=== PATIENT | female | born 1995 | race African-American/Black ===

== ENCOUNTER 2024-09-05 05:21 | Emergency (ER) | payer MEDICAID ==
[~2024-09-05] VITALS: Ht 175.3 cm; Wt 111.1 kg
[2024-09-05 05:35] VITALS: BP 132/80; PULSE 70; RESP 17; TEMP 98.6; O2SAT 99
[2024-09-05 05:40] VITALS: O2SAT 99
[2024-09-05] MEDS ORDERED: NAPR-681 PO (19:42)
== END 2024-09-05 09:52 | disposition left against medical advice (07) ==
LOC: ER 05:21
DX: R68.84 Jaw pain (principal); Z53.21 Procedure and treatment not carried out due to patient leaving prior to being seen by health care provider

== ENCOUNTER 2024-09-05 16:28 | Emergency (ER) | payer MEDICAID ==
[~2024-09-05] VITALS: Ht 175.3 cm; Wt 111.0 kg
[2024-09-05 16:37] VITALS: TEMP 98.7; O2SAT 98
[2024-09-05 17:22] VITALS: O2SAT 100
[2024-09-05 18:05] VITALS: BP 143/78; PULSE 90; RESP 18
[2024-09-05] MEDS: HYDROCODONE/ACETAMINOPHEN 5/325MG TABLET PO STA (18:05)
[2024-09-05] MEDS ORDERED: NAPR-681 PO (19:42)
== END 2024-09-05 20:02 | disposition home or self-care (01) ==
LOC: ER 16:28
DX: S00.83XA Contusion of other part of head, initial encounter (principal); G44.309 Post-traumatic headache, unspecified, not intractable; Y08.89XA Assault by other specified means, initial encounter; Y93.89 Activity, other specified; Y92.89 Other specified places as the place of occurrence of the external cause; Y99.8 Other external cause status
CPT/HCPCS: 70486; 81025; 99284

== ENCOUNTER 2024-11-14 10:47 | Emergency (ER) | payer MEDICAID ==
[~2024-11-14] VITALS: Ht 167.6 cm; Wt 113.3 kg
[~2024-11-14 10:47] MED LIST: NAPR-681 PO
[2024-11-14 11:00] VITALS: BP 118/85; RESP 16; TEMP 36.6; O2SAT 96
[2024-11-14 11:03] VITALS: PULSE 78; O2SAT 98
[2024-11-14 11:43] LABS: CLARITY URINE CLOUDY (CLEAR); COLOR URINE YELLOW (YELLOW); GLUCOSE URINE NEGATIVE (NEGATIVE); KETONES URINE NEGATIVE (NEGATIVE); LEUKOCYTE ESTERASE URINE 1+ (NEGATIVE); NITRITE URINE POSITIVE (NEGATIVE); OCCULT BLOOD URINE TRACE (NEGATIVE); PROTEIN URINE NEGATIVE (NEGATIVE); SPECIFIC GRAVITY URINE 1.021 (1.005-1.030)
[2024-11-14 12:06] LABS: BACTERIA URINE 4+; SQUAMOUS EPITHELIAL CELL URINE 3+ /lpf (RARE/1+); YEAST URINE NONE SEEN
[2024-11-14] MEDS: CEFTRIAXONE SODIUM 1G VIAL IM ONE (12:07)
[2024-11-14] MEDS: LIDOCAINE HCL 1% 20ML VIAL INFIL ONE (12:07)
[2024-11-14] MEDS ORDERED: METR-167 MT (13:37)
[2024-11-14] MEDS ORDERED: DOXY100C5 MT (13:37)
[2024-11-17 04:07] LABS: CHLAMYDIA TRACHOMATIS NAA Negative (Negative); NEISSERIA GONORRHOEAE NAA Negative (Negative)
== END 2024-11-14 14:35 | disposition home or self-care (01) ==
LOC: ER 10:55
DX: N76.0 Acute vaginitis (principal); N39.0 Urinary tract infection, site not specified; Z11.3 Encounter for screening for infections with a predominantly sexual mode of transmission
CPT/HCPCS: 87491; 87591; 81003; 81025; 86592; 87210; 36415; 96372; 99283; J0696; J3490; Z7610 ×3

== ENCOUNTER 2024-12-06 18:42 | Emergency (ER) | payer MEDICAID ==
[~2024-12-06] VITALS: Ht 175.3 cm; Wt 91.0 kg
[~2024-12-06 18:42] MED LIST changes: +DOXY100C5 MT; +METR-167 MT
[2024-12-06 18:54] VITALS: BP 110/78; PULSE 78; RESP 18; TEMP 37; O2SAT 98
== END 2024-12-06 19:40 | disposition left against medical advice (07) ==
LOC: ER 18:54
DX: R07.81 Pleurodynia (principal); Z53.21 Procedure and treatment not carried out due to patient leaving prior to being seen by health care provider

== ENCOUNTER 2024-12-16 21:16 | Emergency (ER) | payer MEDICAID ==
[~2024-12-16] VITALS: Ht 175.3 cm; Wt 102.8 kg
[2024-12-16 21:27] VITALS: O2SAT 98
[2024-12-16 21:28] VITALS: BP 113/70; PULSE 87; RESP 16; TEMP 37; O2SAT 99
[2024-12-17] MEDS: LIDOCAINE HCL/PF 1% 10 MG/ML 5ML VIAL INFIL ONE
== END 2024-12-17 05:36 | disposition home or self-care (01) ==
LOC: ER 21:16
DX: R10.2 Pelvic and perineal pain (principal); N75.0 Cyst of Bartholin's gland
CPT/HCPCS: 99281; J2003

== ENCOUNTER 2025-02-22 09:05 | Emergency (ER) | payer MEDICAID ==
[~2025-02-22] VITALS: Ht 175.3 cm; Wt 97.0 kg
[2025-02-22 09:08] VITALS: O2SAT 99
[2025-02-22 09:28] VITALS: BP 115/74; PULSE 68; RESP 18; TEMP 36.9; O2SAT 100
[2025-02-22 11:24] LABS: BASOPHILS % 0.4 % (0.0-2.0); EOSINOPHILS % 2.1 % (0.0-5.0); HEMATOCRIT. 39.4 % (36.0-48.0); HEMOGLOBIN. 13.3 g/dL (12.0-16.0); LYMPHOCYTES % 22.8 % (20.0-50.0); MEAN CORPUSCULAR HEMOGLOBIN 29.7 pg (28.0-32.0); MEAN CORPUSCULAR HGB CONC 33.9 g/dL (31.0-37.0); MEAN CORPUSCULAR VOLUME 87.8 fL (81.0-99.0); MEAN PLATELET VOLUME 7.5 fl (7.4-10.4); MONOCYTES % 6.6 % (2.0-8.0); NEUTROPHILS % 68.1 % (40.0-76.0); PLATELET 335 x1000/uL (130-400); RED BLOOD CELL COUNT 4.49 mill/uL (4.2-5.4); RED CELL DISTRIBUTION WIDTH 14.3 % (11.6-14.6); WHITE BLOOD COUNT 10.1 x1000/uL (4.5-11.0)
[2025-02-22 11:33] LABS: CHLORIDE 107 mEq/L (98-107); POTASSIUM 3.9 mEq/L (3.5-5.1); SODIUM 139 mEq/L (136-145)
[2025-02-22 11:34] LABS: CARBON DIOXIDE 26 mEq/L (21-32)
[2025-02-22 11:39] LABS: CREATININE 0.9 mg/dL (0.6-1.0); GLUCOSE 98 mg/dL (70-105); UREA NITROGEN BLOOD 6 mg/dL (9-23)
[2025-02-22 11:40] LABS: ALBUMIN 4.1 g/dL (3.2-4.8)
[2025-02-22 11:41] LABS: ALANINE AMINOTRANSFERASE 23 IU/L (10-49); ASPARTATE AMINOTRANSFERASE 17 IU/L (<34); BILIRUBIN DIRECT 0.2 mg/dL (<=3.0); BILIRUBIN TOTAL 0.6 mg/dL (0.1-1.0); PROTEIN TOTAL 6.9 g/dL (6.0-8.3)
== END 2025-02-22 12:10 | disposition left against medical advice (07) ==
LOC: ER 09:05
DX: N76.4 Abscess of vulva (principal); Z79.899 Other long term (current) drug therapy
CPT/HCPCS: 99283; 80076; 80048; 85025; 36415; A6449

== ENCOUNTER 2025-07-01 16:54 | Emergency (ER) | payer MEDICAID ==
[~2025-07-01] VITALS: Ht 175.3 cm; Wt 98.0 kg
[2025-07-01 17:01] VITALS: O2SAT 99
[2025-07-01] MEDS ORDERED: DOXY100C5 MT (17:37)
[2025-07-01] MEDS ORDERED: METR70GE27 VG (17:37)
[2025-07-01] MEDS ORDERED: FLUC150T46 MT (17:37)
[2025-07-01] MEDS: CEFTRIAXONE SODIUM 500MG VIAL IM ONE (17:58)
[2025-07-01 18:18] VITALS: BP 122/78; PULSE 87; RESP 18; TEMP 37.1; O2SAT 98
[2025-07-05 04:09] LABS: CHLAMYDIA TRACHOMATIS NAA Negative (Negative); NEISSERIA GONORRHOEAE NAA Negative (Negative)
== END 2025-07-01 18:24 | disposition home or self-care (01) ==
LOC: ER 16:54
DX: N76.0 Acute vaginitis (principal); B37.31 Acute candidiasis of vulva and vagina; Z20.2 Contact with and (suspected) exposure to infections with a predominantly sexual mode of transmission; Z79.899 Other long term (current) drug therapy
CPT/HCPCS: 99283; 87491; 87591; 81025; 96372; J0696